=== PATIENT | male | born 1985 | race Caucasian/White ===

== ENCOUNTER 2021-04-08 17:16 | Emergency (ER) | payer OTHER, SELFPAY ==
[2021-04-08 17:45] VITALS: BP 125/76; PULSE 95; RESP 16; TEMP 37.1; O2SAT 96; BMI 31.4
--- NOTE | 2021-04-08 17:47 | XRR_ITS ---
PROCEDURE INFORMATION: Exam: XR Right Hand Exam date and time: 04/08/2021 5:47 PM Age: 35 years old Clinical indication: Pain; Hand; Right TECHNIQUE: Imaging protocol: XR Right hand. Views: 3 or more views. COMPARISON: No relevant prior studies available. FINDINGS: Bones/joints: No fracture or other acute osseous abnormality. No acute or chronic joint abnormality demonstrated. Soft tissues: Disruption of the distal soft tissues of the index finger. XR/XR hand RT min 3V* [id number] IMPRESSION: 1. Disruption of the distal soft tissues of the index finger. 2. No acute fracture demonstrated.
--- NOTE | 2021-04-08 19:34 | W.ED.UPPEXIN ---
HPI - Extremity Injury (Upper) General: Chief Complaint: Extremity Injury, Upper Stated Complaint: WC..RIGHT INDEX FINGER PAIN Time Seen by Provider: 04/08/21 19:22 Source: patient Mode of arrival: ambulatory Limitations: no limitations History of Present Illness: HPI narrative: Patient is a 35-year-old male who presents to ED today with complaints of a crush injury/laceration to his right index finger that he sustained while at work at [employer]. States he got finger caught between two pieces of equipment. Last tetanus about 7 years ago. Review of Systems Musc: Reports: extremity pain (R index finger); Denies: extremity swelling, joint pain, joint swelling, joint redness, joint warmth or limited range of motion Skin/Breast: Reports: other (laceration) Neuro: Denies: numbness in extremities or sensory changes Physical Exam Const: COMMON NORMALS: no acute distress, average body habitus, patient oriented x3, no limitations, healthy appearing, alert and well nourished Extremity: COMMON NORMALS: full ROM and capillary refill normal GENERAL: Yes normal exam except as noted OTHER: R index finger with laceration to palmar distal tip extending to the ulnar aspect of the nail; no nail plate/bed/fold damage; no subungual hematoma Neuro: COMMON NORMALS: patient oriented x3, moves all extremities, no focal motor deficits and no sensory deficits noted SENSORIUM/ORIENTATION: Yes alert Skin: NARRATIVE SKIN EXAM: see extremity assessment for pertinent skin findings Procedures Laceration Laceration 1: Site: hand (index finger) Side (If applicable): right Size (cm): 1.5 Description: irregular Depth: simple, single layer Local Anesthetic: lidocaine 2% (digital block) Amount of anesthesia used (mL): 3.0 Pre-repair: wound explored and irrigated extensively Skin layer closed with: nylon Size (cm): 4-0 Number of sutures: 5 Technique: simple, interrupted Course Vital Signs: Vital signs: Vital Signs Temperature 98.2 F 04/08/21 20:37 Pulse Rate 88 04/08/21 20:37 Respiratory Rate 15 04/08/21 20:37 Blood Pressure 122/75 04/08/21 20:37 Pulse Oximetry 96 04/08/21 20:37 MDM - Extremity Injury (Upper) MDM Narrative: Medical decision making narrative: XR negative. Laceration repaired as documented. Will place on abx. Tetanus updated. [place] [employer] traffic safety administrator with patient and states they will handle Worker's Comp from their end. Imaging Data^: XR R hand: Radiologist's impression: [address] [place] [address] XRay Report Signed Patient: Micky Schmitt Unit #: [id number] : 1985 Age/Sex: 35 / M ADM Date: 04/08/21 Loc: ER Room/Bed: Attending Dr: Ordering Provider/Ordering MD: Baron Lambert MD Date of Service: 04/08/21 Procedure(s): XR hand RT min 3V* [id number] Accession Number(s): [id number] Report Number: [id number] PROCEDURE INFORMATION: Exam: XR Right Hand Exam date and time: 04/08/2021 5:47 PM Age: 35 years old Clinical indication: Pain; Hand; Right TECHNIQUE: Imaging protocol: XR Right hand. Views: 3 or more views. COMPARISON: No relevant prior studies available. FINDINGS: Bones/joints: No fracture or other acute osseous abnormality. No acute or chronic joint abnormality demonstrated. Soft tissues: Disruption of the distal soft tissues of the index finger. XR/XR hand RT min 3V* [id number] IMPRESSION: 1. Disruption of the distal soft tissues of the index finger. 2. No acute fracture demonstrated. Dictated By: Hadley Linares MD Signed By: Hadley Linares MD Signed Date/Time: 04/08/211838 DD/ 37 Discharge Plan Discharge Patient Disposition: Home Clinical Impression: Laceration of right index finger Qualifiers: Encounter type: initial encounter Damage to nail status: without damage Foreign body presence: without foreign body Qualified Code(s): S61.210A - Laceration without foreign body of right index finger without damage to nail, initial encounter Condition: Stable Prescriptions: New cephalexin 500 mg capsule 500 mg PO Q6H 7 Days Qty: 28 RF: 0 Discharge Orders: Discharge ED (Routine); Ordered 04/08/21 Ordered By: Rebeka Saeed Patient Instructions: Suture Care (ED), Finger Laceration (ED) Activity Restrictions/Additional Instructions: Keep wound/laceration clean with warm soap and water twice daily. Monitor for signs of infection such as redness, swelling, increased pain, or drainage. Please seek medical re-evaluation if these occur. If you received sutures today these will need to be removed (unless you were told by the provider that they are absorbable). The provider should have discussed with you the length of time until removal-7 days. You may return to the emergency department for this service. If your wound was closed with Steri-Strips or glue/adhesive these will fall off within the next week or so. Stand Alone Forms: Work/School Release Coding Level of Care Code ED Floater Operator for Trevor Fwd Exam Expanded Problem Focused
[2021-04-08] MEDS: tetanus-diphtheria tox (adult) 0.5 mL SDV IM (20:26)
--- NOTE | 2021-04-08 20:30 | PC.NURSE ---
Patients wound dressed with telfa dressing and wrapped with coban.
[2021-04-08] MEDS: lidocaine 2% INJ 20 mL INJECTION (20:31)
[2021-04-08 20:37] VITALS: BP 122/75; PULSE 88; RESP 15; TEMP 36.8; O2SAT 96
== END 2021-04-08 20:39 | disposition home or self-care (01) ==
PROVIDERS: Emergency Provider Physician Assistant
DX: S61.210A Laceration without foreign body of right index finger without damage to nail, initial encounter (principal); W23.0XXA Caught, crushed, jammed, or pinched between moving objects, initial encounter; Y99.0 Civilian activity done for income or pay; Z23 Encounter for immunization
CPT/HCPCS: 12001; 73130; 90471; 90714; 99283

== ENCOUNTER → 2022-10-12 09:52 | Outpatient (BNVA) | payer BC, SELFPAY | PROVIDERS: PCP Family Medicine; Visit Provider Family Medicine | DX: R53.83 Other fatigue (principal); R06.83 Snoring; G47.33 Obstructive sleep apnea (adult) (pediatric); Z68.35 Body mass index [BMI] 35.0-35.9, adult | CPT/HCPCS: 80053; 80061; 82040; 84270; 84403; 85025 ==

== ENCOUNTER → 2022-10-18 10:55 | Outpatient (BNVA) | payer BC, SELFPAY | PROVIDERS: PCP Family Medicine; Visit Provider Family Medicine | DX: R53.83 Other fatigue (principal); R06.83 Snoring; G47.33 Obstructive sleep apnea (adult) (pediatric); Z68.35 Body mass index [BMI] 35.0-35.9, adult; R79.89 Other specified abnormal findings of blood chemistry | CPT/HCPCS: 83001; 83002; 84403 ==

== ENCOUNTER 2022-12-16 20:00 | Outpatient (CLI) | payer BC, SELFPAY | END 2022-12-16 20:01 | disposition home or self-care (01) | LOC: SLEEP 12-17 04:18 | PROVIDERS: PCP Family Medicine; Visit Provider Family Medicine | DX: G47.33 Obstructive sleep apnea (adult) (pediatric) (principal); R06.83 Snoring | CPT/HCPCS: 95810 ==

== ENCOUNTER → 2025-01-04 13:35 | Outpatient (BNVA) | payer BC, SELFPAY | PROVIDERS: PCP Family Medicine; Visit Provider Family Medicine | DX: H93.13 Tinnitus, bilateral (principal) | CPT/HCPCS: 80053; 80061; 83036; 84439; 84443; 85025 ==